=== PATIENT | male | born 1980 | race Caucasian/White ===

== ENCOUNTER 2025-04-12 04:51 | Emergency (ER) | payer BC ==
[~2025-04-12] VITALS: Ht 182.9 cm; Wt 95.3 kg
[2025-04-12] MEDS ORDERED: PENICILLIN G BENZATHINE 2.4 MMU/4 ML ML IM ONE (06:16)
[2025-04-12] MEDS: PENICILLIN G BENZATHINE 2.4 MMU/4 ML ML IM ONE (06:22)
[2025-04-12 06:26] VITALS: BP 110/72; TEMP 98.1; O2SAT 99
== END 2025-04-12 06:27 | disposition home or self-care (01) ==
LOC: ER 04:57
DX: A53.9 Syphilis, unspecified (principal); R51.9 Headache, unspecified; Z86.19 Personal history of other infectious and parasitic diseases
CPT/HCPCS: 99285; 70450; 96372; J0558